=== PATIENT | male | born 1950 ===

== ENCOUNTER 2021-05-06 10:39 | Emergency (ER) | payer BC, SELFPAY ==
[2021-05-06 10:49] VITALS: BP 153/96; PULSE 85; RESP 18; TEMP 36.8; O2SAT 98
[2021-05-06 10:56] VITALS: BP 153/96; PULSE 85; RESP 18; TEMP 36.8; O2SAT 98
--- NOTE | 2021-05-06 11:32 | ED.SKABFB ---
HPI - Skin/Abscess/Foreign Bdy General Chief complaint: Skin/Abscess/Foreign Body Stated complaint: rash Time Seen by Provider: 05/06/21 11:15 Source: patient Mode of arrival: ambulatory Limitations: no limitations History of Present Illness HPI narrative: Rashi Espinal is a 70 yo male with PMH asthma, CKD3, prediabetes, HTN, who comes to [facility] with idiopathic hives from food that is eaten recently he has a peanut and tomato allergy. He started to develop hives yesterday.he has had in the last couple of days and he is known to develop these hives in response to the allergy. He is also on cyclosporine in relation to these hives and ckd Nausea vomiting diarrhea; states hives appeared spontaneously, no respiratory difficulties Blood pressure is elevated on triage- Related Data Home Medications Medication Instructions Recorded Confirmed Flonase 05/06/21 Symbicort 05/06/21 Ventolin 05/06/21 chlorthalidone 05/06/21 cyclosporine modified [Gengraf] 05/06/21 dicyclomine mg 05/06/21 losartan 05/06/21 montelukast mg 05/06/21 morphine PO 05/06/21 Allergies Allergy/AdvReac Type Severity Reaction Status Date / Time peanut Allergy Unknown Hives / Unverified 01/02/19 14:13 Red Face Penicillins Allergy Unknown Rash Verified 05/06/21 12:16 tomato Allergy Unknown Hives / Unverified 01/02/19 14:13 Red Face diphenhydramine Allergy Rash Verified 05/06/21 12:16 [From Benadryl] Review of Systems Review of Systems: Narrative: CONSTITUTIONAL: Denies fever, chills, sweats. EYES: Denies visual changes, redness, discharge. ENT: Denies rhinorrhea, congestion, sore throat, otalgia. CARDIOVASCULAR: Denies chest pain, palpitations, edema. RESPIRATORY: Denies dyspnea, wheezing, cough GASTROINTESTINAL: Denies abdominal pain, nausea, vomiting, diarrhea. GENITOURINARY: Denies dysuria, hematuria, abnormal discharge SKIN: Hives randomly on trunk and arms NEUROLOGIC: Denies numbness, or focal weakness. PSYCHIATRIC: Denies anxiety or depression. 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 There is no relevant family history pertinent to the presenting complaint. Exam Narrative: Exam Narrative: GENERAL: This is a well-nourished, well-developed patient, in mild distress. HEAD: normocephalic, atraumatic. EYES: Sclera clear/white. Vision is grossly intact. EARS: External ears normal. Hearing grossly intact. NOSE: External nose normal without nasal discharge, nares without redness, no rhinorrhea. THROAT: Mucous membranes moist, NECK: Neck supple, CARDIOVASCULAR: Regular rate and rhythm without murmurs, gallops, or rubs. RESPIRATORY: Clear to auscultation. Breath sounds equal bilaterally. No wheezes, rales, or rhonchi. GASTROINTESTINAL: Abdomen soft, SKIN: warm, intact with blotchy erythematous raised lesions randomly on torso and arms NEURO: awake, alert, and oriented to person, place and time. There were no obvious focal neurologic abnormalities. Steady gait EXTREMITIES: Normal range of motion. BACK: Nontender without deformity Course Course Emergency Course: Patient comes to [facility] for treatment of what appears to be hives caused from food exposure to either peanuts or tomatoes in the last day or 2 he has been breaking out since yesterday Given Solu-Medrol 80 mg here Will be discharged on prednisone, Benadryl, Pepc
[2021-05-06] MEDS: methylPREDNISolone ACETATE 80 MG/ML VIAL IM (11:45)
--- NOTE | 2021-05-06 12:16 | PC.NURSE ---
upon dc at 1208 pt stated has allergy to benadryl rx is hives. requested atarax.
== END 2021-05-06 12:22 | disposition home or self-care (01) ==
PROVIDERS: Emergency Provider Nurse Practitioner; PCP Internal Medicine
DX: L50.1 Idiopathic urticaria (principal); J45.909 Unspecified asthma, uncomplicated; I12.9 Hypertensive chronic kidney disease with stage 1 through stage 4 chronic kidney disease, or unspecified chronic kidney disease; N18.30 Chronic kidney disease, stage 3 unspecified; R73.03 Prediabetes
CPT/HCPCS: 96372; 99213; G0463; J1040

== ENCOUNTER 2022-10-16 14:08 | Emergency (ER) | payer BC, SELFPAY ==
[2022-10-16 14:19] VITALS: BP 152/89; PULSE 94; RESP 16; TEMP 36.9; O2SAT 98
--- NOTE | 2022-10-16 14:30 | ED.SKABFB ---
HPI - Skin/Abscess/Foreign Bdy General Chief complaint: Skin/Abscess/Foreign Body Stated complaint: rash Time Seen by Provider: 10/16/22 15:08 Source: patient and RN notes reviewed Mode of arrival: ambulatory Limitations: no limitations History of Present Illness HPI narrative: 72-year-old male presents with concern for hives. Reports he started getting hives after he started taking Eliquis on . Reports he had a started on Eliquis after getting and DVT and pulmonary embolism. He was told by his physician he needs to stay on the Eliquis until follow-up. He denies swollen lips, swollen time, trouble breathing, trouble swallowing, fever, vomiting, diarrhea. Reports he is allergic to Benadryl. MD complaint: rash Related Data Home Medications Medication Instructions Recorded Confirmed chlorthalidone 25 mg tablet 25 mg DIRECTED 05/06/21 10/16/22 dicyclomine 10 mg capsule 10 mg DIRECTED 05/06/21 10/16/22 losartan 100 mg tablet 100 mg DIRECTED 05/06/21 10/16/22 montelukast 10 mg tablet 10 mg DIRECTED 05/06/21 10/16/22 morphine 15 mg tablet,extended 15 mg PO DIRECTED 05/06/21 10/16/22 release apixaban 5 mg tablet (Eliquis) 5 mg DIRECTED 10/16/22 10/16/22 Allergies Allergy/AdvReac Type Severity Reaction Status Date / Time peanut Allergy Unknown Hives / Verified 10/16/22 15:14 Red Face Penicillins Allergy Unknown Rash Verified 05/06/21 12:16 tomato Allergy Unknown Hives / Verified 10/16/22 15:14 Red Face diphenhydramine Allergy Rash Verified 05/06/21 12:16 [From Benadryl] Review of Systems Review of Systems: CONSTITUTIONAL: Denies malaise, chills, sweats, or fever. EYES: Denies redness, or discharge. ENT: Denies rhinorrhea, congestion, swollen lips, swollen tongue CARDIOVASCULAR: Denies chest pain, palpitations, or edema. RESPIRATORY: Denies cough or dyspnea. GASTROINTESTINAL: Denies abdominal pain, nausea, vomiting SKIN: Reports generalized hives MUSCULOSKELETAL: Denies joint pain or myalgia. NEUROLOGIC: Denies headache. 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 There is no relevant family history pertinent to the presenting complaint Exam Narrative: GENERAL: Well-appearing, well-nourished, and in no acute distress. HEAD: Normocephalic, atraumatic. EYES: PERRLA, conjunctivae clear, and EOMI. ENT: Mucous membranes moist. Oropharynx without edema, erythema or lesions. NECK: Supple. No lymphadenopathy CHEST: Clear to auscultation. No respiratory distress. HEART: Regular rate and rhythm. SKIN: Warm, dry. Skin colored urticaria noted to the hands and neck NEURO: Alert and oriented x3. PSYCH: Normal mood and affect Course Course Emergency Course: Patient is aware of diagnosis, understands and agrees to treatment plan. Anticipatory guidance given. Patient agrees to follow-up as directed and is aware of reasons to seek care at the emergency department. Portions of this record may have been created with voice recognition software Level of Care: Express Care Visit Vital Signs Vital signs: Vital Signs Temperature 98.4 F 10/16/22 14:19 Pulse Rate 94 10/16/22 14:19 Respiratory Rate 16 10/16/22 14:19 Blood Pressure 152/89 H 10/16/22 14:19 Pulse Oximetry 98 10/16/22 14:19 Oxygen Delivery Room Air 10/16/22 14
[2022-10-16] MEDS: methylPREDNISolone SOD SUCC 125 MG VIAL IM (15:17)
== END 2022-10-16 15:44 | disposition home or self-care (01) ==
PROVIDERS: Emergency Provider Nurse Practitioner; PCP Internal Medicine
DX: L50.9 Urticaria, unspecified (principal); I12.9 Hypertensive chronic kidney disease with stage 1 through stage 4 chronic kidney disease, or unspecified chronic kidney disease; N18.30 Chronic kidney disease, stage 3 unspecified; R73.03 Prediabetes; Z86.718 Personal history of other venous thrombosis and embolism; Z86.711 Personal history of pulmonary embolism; Z79.01 Long term (current) use of anticoagulants
CPT/HCPCS: 96372; 99213; G0463; J2930

== ENCOUNTER 2022-11-08 16:37 | Emergency (ER) | payer BC, SELFPAY ==
[2022-11-08 16:59] VITALS: BP 137/89; PULSE 106; RESP 16; TEMP 37.3; O2SAT 98
--- NOTE | 2022-11-08 18:03 | ED.SKABFB ---
HPI - Skin/Abscess/Foreign Bdy General Chief complaint: Skin/Abscess/Foreign Body Stated complaint: Rash Time Seen by Provider: 11/08/22 18:04 Source: patient, RN notes reviewed and old records reviewed Mode of arrival: ambulatory Limitations: no limitations History of Present Illness HPI narrative: 72-year-old male presents to the [facility] where chronic idiopathic large hives. Patient states that he was taking cyclosporin for this medication but due to his diabetes and kidney function they stop prescribing it. Hives returned, wants them gone. Requesting a shot steroids. Requesting high dose oral prednisone. Did not call his doctor today. Patient states that he usually gets a shot of steroids and oral steroids. Discussed with patient that due to his diabetes and his kidney function this should be managed by his primary care provider. patient has no lip or tongue swelling. No chest pain. Denies any shortness of breath. Related Data Home Medications Medication Instructions Recorded Confirmed chlorthalidone 25 mg tablet 25 mg DIRECTED 05/06/21 11/08/22 dicyclomine 10 mg capsule 10 mg DIRECTED 05/06/21 11/08/22 losartan 100 mg tablet 100 mg DIRECTED 05/06/21 11/08/22 montelukast 10 mg tablet 10 mg DIRECTED 05/06/21 11/08/22 morphine 15 mg tablet,extended 15 mg PO DIRECTED 05/06/21 11/08/22 release ergocalciferol (vitamin D2) 1,250 1,250 mcg PO WEEKLY 11/08/22 11/08/22 mcg (50,000 unit) capsule glimepiride 2 mg tablet 2 mg PO DAILY 11/08/22 11/08/22 meclizine 25 mg tablet 25 mg PO TID 11/08/22 11/08/22 naloxone 4 mg/actuation nasal spray 4 mg intranasal USEASDIRECTD 11/08/22 11/08/22 potassium chloride 10 mEq 10 meq PO DAILY 11/08/22 11/08/22 capsule,extended release rivaroxaban 20 mg tablet (Xarelto) 20 mg PO DAILY 11/08/22 11/08/22 sitagliptin phosphate 25 mg tablet 2 mg PO DAILY 11/08/22 11/08/22 (Januvia) Allergies Allergy/AdvReac Type Severity Reaction Status Date / Time peanut Allergy Unknown Hives / Verified 11/08/22 17:02 Red Face Penicillins Allergy Unknown Rash Verified 11/08/22 17:02 tomato Allergy Unknown Hives / Verified 11/08/22 17:02 Red Face diphenhydramine Allergy Rash Verified 11/08/22 17:02 [From Benadryl] Review of Systems Review of Systems: All systems reviewed & are unremarkable except as noted in HPI and below Constitutional: Constitutional: Reports no additional constitutional complaints Eyes: Eyes: Reports no additional eye complaints ENT: Reports system reviewed and no additional complaints, except as documented Cardiovascular: Cardiovascular: Reports no additional cardiovascular complaints, Denies chest pain and Denies dyspnea Respiratory: Respiratory: Reports no additional respiratory complaints, Denies chest congestion, Denies cough and Denies dyspnea Gastrointestinal: Gastrointestinal: Reports no additional gastrointestinal complaints, Denies abdominal pain, Denies nausea and Denies vomiting Musculoskeletal: Musculoskeletal: Reports no additional musculoskeletal complaints Integumentary/Breasts: Skin/Breast: Reports as per HPI and Reports rash Neurologic: Reports system reviewed and no additional complaints, except as documented Psychiatric: Psychiatric: Reports no additional psychiatric complaints Allergic/Immunologic: Allergic/Immunologic: Reports no additional allergic/immunologic complaints PMFSH Past Medical History Medical History 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
[2022-11-08 18:21] LABS: Glucose Point of Care 127 mg/dl (65-105)
[2022-11-08] MEDS: TRIAMCINOLONE ACET INJ 40 MG/ML VIAL IM (18:39)
== END 2022-11-08 18:53 | disposition home or self-care (01) ==
PROVIDERS: Emergency Provider Nurse Practitioner; PCP Internal Medicine
DX: L50.8 Other urticaria (principal); I12.9 Hypertensive chronic kidney disease with stage 1 through stage 4 chronic kidney disease, or unspecified chronic kidney disease; N18.30 Chronic kidney disease, stage 3 unspecified; R73.03 Prediabetes
CPT/HCPCS: 82948; 96372; 99213; 99214; G0463; J3301

== ENCOUNTER 2023-09-24 08:12 | Emergency (ER) | payer BC, SELFPAY ==
[2023-09-24 08:23] VITALS: BP 145/83; PULSE 77; RESP 20; TEMP 36.8; O2SAT 100
--- NOTE | 2023-09-24 08:36 | ED.URI ---
HPI - URI/Sore Throat General Chief Complaint: Upper Respiratory Infection Stated Complaint: Sinus Time Seen by Provider: 09/24/23 08:26 Source: patient and RN notes reviewed Mode of arrival: ambulatory Limitations: no limitations History of Present Illness HPI Narrative: Patient presents today complaining of a one-week history of rhinorrhea, congestion, ear pressure, mild cough. Denies shortness of breath, fever, sore throat. He has been taking Mucinex with some mild relief. History of asthma. Also takes cyclosporin for immunosuppression Related Data Home Medications Medication Instructions Recorded Confirmed chlorthalidone 25 mg tablet 25 mg DIRECTED 05/06/21 09/24/23 dicyclomine 10 mg capsule 10 mg DIRECTED 05/06/21 09/24/23 losartan 100 mg tablet 100 mg DIRECTED 05/06/21 09/24/23 montelukast 10 mg tablet 10 mg DIRECTED 05/06/21 09/24/23 morphine 15 mg tablet,extended 15 mg PO DIRECTED 05/06/21 09/24/23 release ergocalciferol (vitamin D2) 1,250 1,250 mcg PO WEEKLY 11/08/22 09/24/23 mcg (50,000 unit) capsule glimepiride 2 mg tablet 2 mg PO DAILY 11/08/22 09/24/23 meclizine 25 mg tablet 25 mg PO TID 11/08/22 09/24/23 naloxone 4 mg/actuation nasal spray 4 mg intranasal USEASDIRECTD 11/08/22 09/24/23 potassium chloride 10 mEq 10 meq PO DAILY 11/08/22 09/24/23 capsule,extended release rivaroxaban 20 mg tablet (Xarelto) 20 mg PO DAILY 11/08/22 09/24/23 sitagliptin phosphate 25 mg tablet 2 mg PO DAILY 11/08/22 09/24/23 (Januvia) cyclosporine modified 100 mg 100 mg PO DIRECTED 09/24/23 09/24/23 capsule Allergies Allergy/AdvReac Type Severity Reaction Status Date / Time peanut Allergy Unknown Hives / Verified 09/24/23 08:15 Red Face Penicillins Allergy Unknown Rash Verified 09/24/23 08:15 tomato Allergy Unknown Hives / Verified 09/24/23 08:15 Red Face diphenhydramine Allergy Rash Verified 09/24/23 08:15 [From Benadryl] Review of Systems Review of Systems: CONSTITUTIONAL: Denies body aches, fever, chills, or sweats. EYES: Denies visual changes, redness, or discharge. ENT: Denies sore throat, or otalgia.+ rhinorrhea, congestion, bilateral ear pressure CARDIOVASCULAR: Denies chest pain, palpitations, or edema. RESPIRATORY: Denies dyspnea.+ mild cough GASTROINTESTINAL: Denies abdominal pain, nausea, vomiting, or diarrhea. GENITOURINARY: Denies dysuria or hematuria. SKIN: Denies rash, itching, or wounds. MUSCULOSKELETAL: Denies back pain, joint pain, or myalgia. NEUROLOGIC: Denies headache, numbness, tingling, or weakness. PSYCH: Denies depression or anxiety. 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 Please see nursing chart for further information. There is no relevant family history pertinent to the presenting complaint Exam Narrative: GENERAL: Well-appearing, well-nourished, and in no acute distress. HEAD: Normocephalic, atraumatic. EYES: EOMI. No redness or drainage. Conjunctivae normal. ENT: Mucous membranes pink and moist. Nares congested. No rhinorrhea. TMs normal bilaterally. Throat normal. Uvula midline. NECK: Normal AROM. Supple. No lymphadenopathy. CHEST: No respiratory distress. Clear to auscultation. HEART: Regular rate and rhythm. No murmur appreciated. Normal peripheral pulses. EXTREMITIES
== END 2023-09-24 08:53 | disposition home or self-care (01) ==
PROVIDERS: Emergency Provider Nurse Practitioner; PCP Internal Medicine
DX: J01.90 Acute sinusitis, unspecified (principal); I12.9 Hypertensive chronic kidney disease with stage 1 through stage 4 chronic kidney disease, or unspecified chronic kidney disease; E11.22 Type 2 diabetes mellitus with diabetic chronic kidney disease; N18.30 Chronic kidney disease, stage 3 unspecified; J45.909 Unspecified asthma, uncomplicated; Z79.899 Other long term (current) drug therapy; Z79.01 Long term (current) use of anticoagulants
CPT/HCPCS: 99213; G0463

== ENCOUNTER 2025-05-11 09:18 | Emergency (ER) | payer MEDICARE, BC, SELFPAY ==
--- NOTE | 2025-05-11 09:21 | ED_ITS ---
HPI - URI/Sore Throat General Chief Complaint: Upper Respiratory Infection Stated Complaint: sinus congestion Time Seen by Provider: 05/11/25 09:21 Source: patient Mode of arrival: ambulatory Limitations: no limitations History of Present Illness HPI Narrative: Rashi is a 74-year-old male patient presenting to the clinic today with complaints of sinus congestion and chest congestion x6 days. No fevers, chills, body aches. Cough is productive at times. History of asthma. Denies any increased shortness of breath or chest pain at this time. Has has been using his albuterol inhaler. Is concerned about his asthma. Related Data Home Medications ?Medication ?Instructions ?Recorded ?Confirmed ?Last Taken ?Type chlorthalidone 25 mg tablet 25 mg DIRECTED 05/06/21 09/24/23 Unknown History dicyclomine 10 mg capsule 10 mg DIRECTED 05/06/21 09/24/23 Unknown History losartan 100 mg tablet 100 mg DIRECTED 05/06/21 09/24/23 Unknown History montelukast 10 mg tablet 10 mg DIRECTED 05/06/21 09/24/23 Unknown History morphine 15 mg tablet,extended 15 mg PO DIRECTED 05/06/21 09/24/23 Unknown History release ergocalciferol (vitamin D2) 1,250 1,250 mcg PO WEEKLY 11/08/22 09/24/23 Unknown History mcg (50,000 unit) capsule glimepiride 2 mg tablet 2 mg PO DAILY 11/08/22 09/24/23 Unknown History meclizine 25 mg tablet 25 mg PO TID 11/08/22 09/24/23 Unknown History naloxone 4 mg/actuation nasal spray 4 mg intranasal USEASDIRECTD 11/08/22 09/24/23 Unknown History potassium chloride 10 mEq 10 meq PO DAILY 11/08/22 09/24/23 Unknown History capsule,extended release rivaroxaban 20 mg tablet (Xarelto) 20 mg PO DAILY 11/08/22 09/24/23 Unknown History sitagliptin phosphate 25 mg tablet 2 mg PO DAILY 11/08/22 09/24/23 Unknown History (Januvia) cyclosporine modified 100 mg 100 mg PO DIRECTED 09/24/23 09/24/23 Unknown History capsule Allergies Allergy/AdvReac Type Severity Reaction Status Date / Time peanut Allergy Unknown Hives / Verified 05/11/25 09:32 Red Face Penicillins Allergy Unknown Rash Verified 05/11/25 09:32 tomato Allergy Unknown Hives / Verified 05/11/25 09:32 Red Face diphenhydramine (From Allergy Rash Verified 05/11/25 09:32 Benadryl) Review of Systems Review of Systems: Pertinent positives per HPI. Patient denies any fever, chills, rash, headache, visual changes, dizziness, shortness of breath, chest pain, palpitations, nausea, vomiting, diarrhea, constipation, abdominal pain, or any urinary issues. 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 There is no relevant family history pertinent to the patient complaint. Exam Narrative: General: Well-developed, well nourished, in no apparent distress Head: Normocephalic, atraumatic Eyes: Pupils equally round and reactive to light bilaterally, EOM intact, sclera and conjunctive clear, no discharge, lids normal Ears: TMs intact and clear, ear canals clear, no drainage, grossly hearing normal. Nose: Nares patent, clear nasal discharge, moderate inflammation, maxillary sinus tenderness. Mouth: Oral pharynx without lesions or masses, good dentition, MMM. Postnasal drip Neck: Supple, trachea midline, no enlargement of anterior or posterior cervical nodes, no thyroid masses or goiter palpable. Cardio: Regular rate and rhythm, s1 and s2 normal, no murmur appreciated. Resp: Lung sounds diminished in the bases, faint rhonchi and left lower lobe posteriorly, no rales, wheezing or rubs Course Course Emergency Course: Portions of this record may have been created with voice recognition software. Level of Care: Express Care Visit Vital Signs Vital signs: Vital signs reviewed MDM - URI/Sore Throat MDM Narrative Medical decision making narrative: At the time of visit patient is resting comfortably on the exam table. Patient appears to be nontoxic. Patient is hypertensive but otherwise vitals are stable Plan: I suspect patient has bronchitis/sinusitis. Prescription for doxycycline and prednisone was sent to the pharmacy. Patient to continue use albuterol inhaler and recommend using Coricidin HBP for cold/flu symptoms. Supportive measures were discussed with the patient and they voiced understanding discharge instructions and agrees to treatment plan. Return precautions reviewed Differential Diagnosis Differential diagnosis: Likely upper respiratory infection, otitis media, sinusitis, viral infection, bronchitis, influenza, pharyngitis and other (COVID, pneumonia) Discharge Plan Discharge Clinical Impression: Bronchitis Sinusitis Qualifiers: Sinusitis location: maxillary Chronicity: acute Recurrence: non-recurrent Qualified Code(s): J01.00 - Acute maxillary sinusitis, unspecified Patient Disposition: Home Condition: Stable Instructions: Antibiotic Form, Sinusitis (ED), Acute Bronchitis (ED) Additional Instructions: Take prescription medications only as prescribed-prednisone and doxycycline May take Coricidin HBP for cold/flu symptoms Continue use of albuterol inhaler Increase fluids and stay well hydrated Tylenol/motrin for pain/fever Flonase and OTC antihistamines as directed Vicks vapor rub to open sinuses Sinus rinses for congestion Cepacol spray, cough drops, throat lozenges, warm tea with honey/lemon, gargle salt water to soothe throat BRAT diet for diarrhea Clear liquids x 24 hours then advance as tolerated for nausea/vomiting Go to the ED if you develop a worsening in your condition- high fever not controlled by Tylenol or Motrin, dehydration, weakness, lethargy, shortness of breath, or chest pain. Follow up with your PCP in 3-5 days if symptoms persist. Patient Language: Bahraini Prescriptions: New doxycycline monohydrate 100 mg capsule 100 mg PO BID 7 Days Qty: 14 0RF prednisone 20 mg tablet 40 mg PO DAILY 5 Days Qty: 10 0RF No Action potassium chloride 10 mEq capsule, extended release 10 meq PO DAILY glimepiride 2 mg tablet 2 mg PO DAILY meclizine 25 mg tablet 25 mg PO TID ergocalciferol (vitamin D2) 1,250 mcg (50,000 unit) capsule 1,250 mcg PO WEEKLY Novuvia 25 mg tablet 2 mg PO DAILY Xarelto 20 mg tablet 20 mg PO DAILY naloxone 4 mg/actuation spray,non-aerosol 4 mg INTRANASAL USEASDIRECTD chlorthalidone 25 mg tablet 25 mg DIRECTED montelukast 10 mg tablet 10 mg DIRECTED morphine 15 mg tablet extended release 15 mg PO DIRECTED losartan 100 mg tablet 100 mg DIRECTED dicyclomine 10 mg capsule 10 mg DIRECTED famotidine [Pepcid] 20 mg tablet 20 mg PO BID Qty: 14 0RF cyclosporine modified 100 mg capsule 100 mg PO DIRECTED doxycycline hyclate 100 mg tablet 100 mg PO BID 7 Days Qty: 14 0RF Follow-up/Referrals: Aleksandra,Crescencio Briseno MD [Primary Care Provider] - Time of Disposition: 09:32 Quality NIHSS Nursing Documentation ED NIHSS nursing documentation: reviewed/agree
[2025-05-11 09:25] VITALS: BP 171/96; PULSE 85; RESP 18; TEMP 36.8; O2SAT 99
== END 2025-05-11 09:40 | disposition home or self-care (01) ==
PROVIDERS: Emergency Provider Nurse Practitioner Family; PCP Internal Medicine
DX: J40 Bronchitis, not specified as acute or chronic (principal); J01.00 Acute maxillary sinusitis, unspecified; I12.9 Hypertensive chronic kidney disease with stage 1 through stage 4 chronic kidney disease, or unspecified chronic kidney disease; E11.22 Type 2 diabetes mellitus with diabetic chronic kidney disease; N18.30 Chronic kidney disease, stage 3 unspecified; Z79.84 Long term (current) use of oral hypoglycemic drugs; J45.909 Unspecified asthma, uncomplicated; Z79.01 Long term (current) use of anticoagulants
CPT/HCPCS: 99213; G0463

== ENCOUNTER 2025-09-22 10:30 | Emergency (ER) | payer MEDICARE, BC, SELFPAY ==
--- NOTE | ~2025-09-22 | XR_ITS ---
Examination: XR chest 2V Clinical History: Cough 9x days, nonsmoker, hx of pneumonia, asthma Comparison: 01/02/2019 Technique: PA and Lateral Findings: Cardiomediastinal silhouette normal size and configuration. Minimally increased interstitial markings. Possible nodular opacity left midlung overlying posterior lateral rib 7. No acute bony abnormality. IMPRESSION: 1. Recommend CT chest to exclude left lung nodule. Reviewed, dictated and finalized at [facility]
[2025-09-22 10:41] VITALS: BP 163/94; PULSE 101; RESP 18; TEMP 36.9; O2SAT 98
--- NOTE | 2025-09-22 10:56 | ED.URI ---
HPI - URI/Sore Throat General Chief Complaint: Upper Respiratory Infection Stated Complaint: Sinus Time Seen by Provider: 09/22/25 11:09 Source: patient and RN notes reviewed Mode of arrival: ambulatory Limitations: no limitations History of Present Illness HPI Narrative: 75-year-old male with history of asthma presents with concern for cough, headache, blood tinged sputum. Reports blood tinged nasal congestion. Reports history of pneumonia in his left lung and he feels like the symptoms are similar. MD elicited complaint: cough and nasal congestion Related Data Home Medications ?Medication ?Instructions ?Recorded ?Confirmed ?Last Taken ?Type chlorthalidone 25 mg tablet 25 mg DIRECTED 05/06/21 09/24/23 Unknown History dicyclomine 10 mg capsule 10 mg DIRECTED 05/06/21 09/24/23 Unknown History losartan 100 mg tablet 100 mg DIRECTED 05/06/21 09/24/23 Unknown History montelukast 10 mg tablet 10 mg DIRECTED 05/06/21 09/24/23 Unknown History morphine 15 mg tablet,extended 15 mg PO DIRECTED 05/06/21 09/24/23 Unknown History release ergocalciferol (vitamin D2) 1,250 1,250 mcg PO WEEKLY 11/08/22 09/24/23 Unknown History mcg (50,000 unit) capsule glimepiride 2 mg tablet 2 mg PO DAILY 11/08/22 09/24/23 Unknown History meclizine 25 mg tablet 25 mg PO TID 11/08/22 09/24/23 Unknown History naloxone 4 mg/actuation nasal spray 4 mg intranasal USEASDIRECTD 11/08/22 09/24/23 Unknown History potassium chloride 10 mEq 10 meq PO DAILY 11/08/22 09/24/23 Unknown History capsule,extended release rivaroxaban 20 mg tablet (Xarelto) 20 mg PO DAILY 11/08/22 09/24/23 Unknown History sitagliptin phosphate 25 mg tablet 2 mg PO DAILY 11/08/22 09/24/23 Unknown History (Januvia) cyclosporine modified 100 mg 100 mg PO DIRECTED 09/24/23 09/24/23 Unknown History capsule Allergies Allergy/AdvReac Type Severity Reaction Status Date / Time peanut Allergy Unknown Hives / Verified 05/11/25 09:32 Red Face Penicillins Allergy Unknown Rash Verified 05/11/25 09:32 tomato Allergy Unknown Hives / Verified 05/11/25 09:32 Red Face diphenhydramine (From Allergy Rash Verified 05/11/25 09:32 Benadryl) Review of Systems Review of Systems: CONSTITUTIONAL: Denies malaise, chills, sweats, or fever. ENT: Reports rhinorrhea, congestion, sinus pain, and sore throat. CARDIOVASCULAR: Denies chest pain, palpitations, or edema. RESPIRATORY: Reports cough. Denies dyspnea. GASTROINTESTINAL: Denies abdominal pain, nausea, vomiting, diarrhea SKIN: Denies rash or itching. MUSCULOSKELETAL: Denies myalgia. NEUROLOGIC: Denies headache. 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 There is no relevant family history pertinent to the presenting complaint Exam Narrative: GENERAL: Well-appearing, well-nourished, and in no acute distress. HEAD: Normocephalic EYES: PERRLA, conjunctivae clear ENT: Nares clear, no epistaxis. Mucous membranes moist. TM pearly rubin with dull light reflex bilaterally; no tragal tenderness. Oropharynx not erythematous without lesions. Tonsils not enlarged and without exudate, no drooling, no hoarseness, no trismus, uvula midline. NECK: Supple. No lymphadenopathy CHEST: Scattered rhonchi, breath sounds equal. No wheezing, rales, or stridor. No respiratory distress, speaks in full sentences. HEART: Regular rate and rhythm. No murmur heard. SKIN: Warm, dry, no rash. NEURO: Alert and oriented x3. PSYCH: Normal mood and affect Course Course Emergency Course: Patient is aware of diagnosis, understands and agrees to treatment plan. Anticipatory guidance given. Patient agrees to follow-up as directed and is aware of reasons to seek care at the emergency department. Portions of this record may have been created with voice recognition software Level of Care: Express Care Visit Vital Signs Vital signs: Vital Signs Temperature 98.5 F 09/22/25 10:41 Pulse Rate 101 H 09/22/25 10:41 Respiratory Rate 18 09/22/25 10:41 Blood Pressure 163/94 H 09/22/25 10:41 Pulse Oximetry 98 09/22/25 10:41 Oxygen Delivery Room Air 09/22/25 10:41 Temperature 98.5 F 09/22/25 10:41 Pulse Rate 101 H 09/22/25 10:41 Respiratory Rate 18 09/22/25 10:41 Blood Pressure 163/94 H 09/22/25 10:41 Pulse Oximetry 98 09/22/25 10:41 Oxygen Delivery Room Air 09/22/25 10:41 Reviewed. MDM - URI/Sore Throat MDM Narrative Medical decision making narrative: Differential diagnosis considered: Rodriguez virus, strep pharyngitis, allergic rhinitis, upper respiratory tract infection, sinusitis, rhinosinusitis, nasopharyngitis. viral pharyngitis, otitis media, otitis externa, pneumonia, bronchitis, viral cough syndrome, viral syndrome, and influenza. Exam findings show no acute concerns or changes; patient is non-toxic appearing and is in no distress. Patient is appropriate for outpatient treatment and follow-up. Lab Data Attestation: I reviewed the patient's lab results. Imaging Data My impression: Images reviewed, interpreted by radiologist, agree, see report. Radiologist's impression: Examination: XR chest 2V Clinical History: Cough 9x days, nonsmoker, hx of pneumonia, asthma Comparison: 01/02/2019 Technique: PA and Lateral Findings: Cardiomediastinal silhouette normal size and configuration. Minimally increased interstitial markings. Possible nodular opacity left midlung overlying posterior lateral rib 7. No acute bony abnormality. IMPRESSION: 1. Recommend CT chest to exclude left lung nodule. Critical Care Time Critical Care Time Critical Care Time: No Discharge Plan Discharge Clinical Impression: Sinobronchitis Patient Disposition: Home Condition: Stable Instructions: Antibiotic Form Additional Instructions: 1) Please follow-up with your primary care doctor in the next 1-2 days. 2) If you have any worsening of symptoms or any other urgent concerns please go to the ER. 3) Please take medications as prescribed and continue taking your home medications as usual. 4) Please read and follow information included in discharge instructions. Patient Language: Georgian Prescriptions: New prednisone 20 mg tablet 40 mg PO DAILY 5 Days Qty: 10 0RF doxycycline monohydrate 100 mg tablet 100 mg PO BID 7 Days Qty: 14 0RF No Action potassium chloride 10 mEq capsule, extended release 10 meq PO DAILY glimepiride 2 mg tablet 2 mg PO DAILY meclizine 25 mg tablet 25 mg PO TID ergocalciferol (vitamin D2) 1,250 mcg (50,000 unit) capsule 1,250 mcg PO WEEKLY Januvia 25 mg tablet 2 mg PO DAILY Xarelto 20 mg tablet 20 mg PO DAILY naloxone 4 mg/actuation spray,non-aerosol 4 mg INTRANASAL USEASDIRECTD chlorthalidone 25 mg tablet 25 mg DIRECTED montelukast 10 mg tablet 10 mg DIRECTED morphine 15 mg tablet extended release 15 mg PO DIRECTED losartan 100 mg tablet 100 mg DIRECTED dicyclomine 10 mg capsule 10 mg DIRECTED famotidine [Pepcid] 20 mg tablet 20 mg PO BID Qty: 14 0RF cyclosporine modified 100 mg capsule 100 mg PO DIRECTED doxycycline hyclate 100 mg tablet 100 mg PO BID 7 Days Qty: 14 0RF doxycycline monohydrate 100 mg capsule 100 mg PO BID 7 Days Qty: 14 0RF prednisone 20 mg tablet 40 mg PO DAILY 5 Days Qty: 10 0RF Follow-up/Referrals: Aleksandra,Crescencio Briseno MD [Primary Care Provider, Unknown] Time of Disposition: 11:35
== END 2025-09-22 11:45 | disposition home or self-care (01) ==
PROVIDERS: Emergency Provider Nurse Practitioner; PCP Internal Medicine
DX: J32.9 Chronic sinusitis, unspecified (principal); J40 Bronchitis, not specified as acute or chronic; I12.9 Hypertensive chronic kidney disease with stage 1 through stage 4 chronic kidney disease, or unspecified chronic kidney disease; N18.30 Chronic kidney disease, stage 3 unspecified; E11.22 Type 2 diabetes mellitus with diabetic chronic kidney disease; Z79.84 Long term (current) use of oral hypoglycemic drugs; J45.909 Unspecified asthma, uncomplicated
CPT/HCPCS: 71046; 99213; G0463